=== PATIENT | female | born 1940 | race Caucasian/White ===

== ENCOUNTER 2016-09-21 17:54 | Emergency (ER) | payer MEDICARE ==
[2016-09-21] MEDS ORDERED: Lidocaine 1% 20 ML MDV ONE (18:04)
[2016-09-21] MEDS ORDERED: Adacel (T-DAP) 0.5 ML VIAL ONE (18:44)
== END 2016-09-21 18:57 | disposition home or self-care (01) ==
LOC: NAV ERS 17:54
DX: S61.213A Laceration without foreign body of left middle finger without damage to nail, initial encounter (principal); E78.5 Hyperlipidemia, unspecified; I10 Essential (primary) hypertension; D64.9 Anemia, unspecified; Z79.899 Other long term (current) drug therapy; Z79.82 Long term (current) use of aspirin; X58.XXXA Exposure to other specified factors, initial encounter
CPT/HCPCS: 12001; 90471; 90715; J2001

== ENCOUNTER 2016-10-03 13:16 | Emergency (ER) | payer MEDICARE | END 2016-10-03 14:28 | disposition home or self-care (01) | LOC: NAV ERS 13:16 | DX: S61.213D Laceration without foreign body of left middle finger without damage to nail, subsequent encounter (principal); I10 Essential (primary) hypertension; E78.5 Hyperlipidemia, unspecified; I25.10 Atherosclerotic heart disease of native coronary artery without angina pectoris; Z79.82 Long term (current) use of aspirin; Z79.891 Long term (current) use of opiate analgesic; Z79.899 Other long term (current) drug therapy; X58.XXXD Exposure to other specified factors, subsequent encounter ==

== ENCOUNTER 2018-03-04 19:38 | Emergency (ER) | payer MEDICARE ==
[2018-03-04] MEDS ORDERED: Lidocaine 1% w/Epinephrine 1:100K 30 ML VIAL ONE (21:14)
[2018-03-04] MEDS ORDERED: Triple Antibiotic Oint 1 GM Packet ONE (21:32)
--- NOTE | 2018-03-04 21:44 | CT ---
CT BRAIN WITHOUT CONTRAST: History: Fell of stool. Head injury. Headache. FINDINGS: No evidence of infarct, hemorrhage, midline shift or abnormal extraaxial fluid collections are seen. The ventricular size is appropriate and the basal cisterns patent. The bony calvarium is intact. There is a mucous retention cyst versus polyp in the right maxillary si nus. IMPRESSION: No CT evidence of acute intracranial process. POS: [facility]
--- NOTE | 2018-03-04 21:48 | CT ---
CT CERVICAL SPINE WITH CORONAL AND SAGITTAL REFORMATIONS: History: Fell off a stool. Neck pain. 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 No acute fracture or subluxation is seen. No facet malalignment is identified. POS: [id number]
== END 2018-03-04 21:43 | disposition home or self-care (01) ==
LOC: NAV ERS 19:38
DX: S81.812A Laceration without foreign body, left lower leg, initial encounter (principal); K21.9 Gastro-esophageal reflux disease without esophagitis; I25.10 Atherosclerotic heart disease of native coronary artery without angina pectoris; E78.5 Hyperlipidemia, unspecified; I10 Essential (primary) hypertension; F32.9 Major depressive disorder, single episode, unspecified; Z79.899 Other long term (current) drug therapy; W18.30XA Fall on same level, unspecified, initial encounter
CPT/HCPCS: 12001; 70450; 72125; J2001

== ENCOUNTER 2018-03-16 18:10 | Emergency (ER) | payer MEDICARE | END 2018-03-16 19:03 | disposition home or self-care (01) | LOC: NAV ERS 18:10 | DX: S81.811D Laceration without foreign body, right lower leg, subsequent encounter (principal); K21.9 Gastro-esophageal reflux disease without esophagitis; E78.5 Hyperlipidemia, unspecified; I10 Essential (primary) hypertension; F32.9 Major depressive disorder, single episode, unspecified; Z79.899 Other long term (current) drug therapy ==